=== PATIENT | male | born 1950 | race Hispanic/Latino ===

== ENCOUNTER 2017-03-13 15:43 | Emergency (ER) | payer OTHER ==
[2017-03-13 16:15] VITALS: O2SAT 96
--- NOTE | 2017-03-13 16:43 | C.PDOC ---
History Of Present Illness 66 year old patient, with a past medical history of anemia, hypertension and diabetes, is brought to the ED by ambulance reporting episode of hypoglycemia. Patient states he took his normal dose of diabetes medication around 10am. He also had a normal breakfast with ensure and 1-2 pieces of cheese. He went to work afterwards. The last thing he remembers was walking to his car. It was an hour or more before EMS arrived. He was given 50 mg of Dextrose in the field, then woke up. Patient has no complaints in the ED. He is surprised it happened, and only had one similar episode a year ago. Patient denies chest pain, cough, fever or vomiting. Time Seen by Provider: 03/13/17 16:11 Chief Complaint (Nursing): Medical Clearance History Per: Patient, EMS, Family History/Exam Limitations: no limitations Onset/Duration Of Symptoms: Hrs (before arrival) Current Symptoms Are (Timing): Gone Severity: None Pain Scale Rating Of: 0 Recent travel outside of the [place]: No Past Medical History Reviewed: Historical Data, Nursing Documentation, Vital Signs Vital Signs: Last Vital Signs Temp 97.6 F 03/13/17 17:45 Pulse 68 03/13/17 17:45 Resp 17 03/13/17 17:45 BP 158/81 H 03/13/17 17:45 Pulse Ox 96 03/13/17 18:09 - Medical History PMH: Anemia, Diabetes, HTN Family History: States: Unknown Family Hx - Social History Hx Alcohol Use: Yes Hx Substance Use: No Review Of Systems Except As Marked, All Systems Reviewed And Found Negative. Constitutional: Negative for: Fever Cardiovascular: Negative for: Chest Pain Respiratory: Negative for: Cough Genitourinary: Negative for: Dysuria, Hematuria Neurological: Positive for: Other (hypoglycemia) Physical Exam - Physical Exam Appears: Non-toxic, No Acute Distress Skin: Warm, Dry Head: Atraumatic, Normacephalic Eye(s): bilateral: Normal Inspection Oral Mucosa: Moist Neck: Normal ROM, Supple Chest: Symmetrical Cardiovascular: Rhythm Regular, No Murmur Respiratory: Normal Breath Sounds, No Rales, No Rhonchi, No Wheezing Gastrointestinal/Abdominal: Soft, No Tenderness, No Mass, No Guarding Back: Normal Inspection Extremity: Normal ROM, No Pedal Edema Neurological/Psych: Oriented x3, Normal Speech, Normal Cognition Gait: Steady ED Course And Treatment - Laboratory Results Result Diagrams: 03/13/17 16:46 03/13/17 16:46 O2 Sat by Pulse Oximetry: 96 (room air) Pulse Ox Interpretation: Normal Progress Note: Plan: Labs Medical Decision Making Medical Decision Making: regular meal ordered Pt remained stable Observed and maintained his glucose Plan dc home with Disposition Counseled Patient/Family Regarding: Need For Followup - Disposition Disposition: HOME/ ROUTINE Disposition Time: 17:37 Condition: FAIR Additional Instructions: Eat dinner when you get home Instructions: Diabetic Hypoglycemia (ED) - Clinical Impression Clinical Impression: Hypoglycemia - Scribe Statement The provider has reviewed the documentation as recorded by the Scribe Chelsea Anguiano Provider Attestation: All medical record entries made by the Scribe were at my direction and personally dictated by me. I have reviewed the chart and agree that the record accurately reflects my personal performance of the history, physical exam, medical decision making, and the department course for this patient. I have also personally directed, reviewed, and agree with the discharge instructions and disposition.
[2017-03-13 17:02] LABS: ALB/GLOB RATIO 1.2 (1.0-2.1); BILIRUBIN,TOTAL 1.1 mg/dL (0.2-1.3); POTASSIUM 6.1 mmol/L (3.6-5.2); TOTAL PROTEIN 7.1 g/dL (6.3-8.3)
[2017-03-13 17:03] LABS: CALCIUM 8.7 mg/dl (8.6-10.4)
[2017-03-13 17:04] LABS: BASO % 0.5 % (0.0-2.0); EOS # 0.1 K/uL (0.0-0.7); EOS % 1.9 % (0.0-4.0); HEMATOCRIT 32.9 % (35.0-51.0); LYMPH # 0.8 K/uL (1.0-4.3); LYMPH % 11.1 % (20.0-40.0); MEAN CELL VOLUME 84.4 fL (80.0-94.0); MEAN CORPUSCULAR HEMOGLOBIN 25.9 pg (27.0-31.0); MEAN CORPUSCULAR HGB CONC 30.7 g/dL (33.0-37.0); MEAN PLATELET VOLUME 8.1 fL (7.2-11.7); MONO % 12.9 % (0.0-10.0); RED CELL DISTRIBUTION WIDTH 17.7 % (11.5-14.5); WHITE BLOOD COUNT 7.6 K/uL (4.8-10.8)
[2017-03-13 17:49] VITALS: BP 158/81; PULSE 68; RESP 17; TEMP 97.6
== END 2017-03-13 18:16 | disposition home or self-care (01) ==
LOC: C.ER 15:43
DX: E11.649 Type 2 diabetes mellitus with hypoglycemia without coma (principal); Z79.84 Long term (current) use of oral hypoglycemic drugs